=== PATIENT | male | born 1970 | race Caucasian/White ===

== ENCOUNTER 2018-01-12 14:47 | Outpatient (CLI) | payer OTHER, SELFPAY ==
[2018-01-12 15:10] LABS: Abs Immature Grans 0.02 k/cumm (0.0-0.09); Absolute Basophil Count 0.04 k/cumm (0.0-0.2); Absolute Lymphocyte Count 1.96 k/cumm (1.2-3.4); Absolute Monocyte Count 0.87 k/cumm (0.11-0.7); Absolute Neutrophil Count 4.77 k/cumm (1.2-6.7); Basophils % 0.5; Eosinophils % 1.3; HGB 16.7 g/dL (13.5-17.5); Immature Grans % 0.3; Lymphocytes % 25.3; Mean Corp. HGB Concentration 34.8 g/dL (32.0-36.0); Mean Corpuscular Hemoglobin 30.7 pg (27.0-33.0); Mean Corpuscular Volume 88.2 fL (80-95); Mean Platelet Volume 9.5 fL (8.0-11.0); Monocytes % 11.2; Neutrophils % 61.4; Platelet Count 196 x1000/uL (130-400); RBC 5.44 m/cumm (4.50-6.00); RBC Distribution Width 12.9 % (11.8-14.1); White Blood Cell Count 7.76 k/cumm (4.4-10.8)
[2018-01-12 16:27] LABS: FREE T4 1.03 ng/dL (0.76-1.46); TSH 2.73 uIU/mL (0.358-3.74)
[2018-01-16 15:00] LABS: Testosterone, Bioavailable 49 ng/dL (61-213); Testosterone, Free 7.17 ng/dL (4.26-16.4); Testosterone, Total 256 ng/dL (240-950)
== END 2018-01-12 14:48 ==
PROVIDERS: PCP Internal Medicine Sleep Medicine; Visit Provider Internal Medicine Sleep Medicine
DX: E29.1 Testicular hypofunction (principal); R53.83 Other fatigue
CPT/HCPCS: 36415; 84402; 84403; 84410; 84439; 84443; 85025